=== PATIENT | male | born 1990 | race Caucasian/White ===

== ENCOUNTER 2018-05-07 12:15 | Emergency (ER) | payer OTHER ==
[~2018-05-07] VITALS: Ht 175.3 cm; Wt 59.5 kg
[2018-05-07 13:00] LABS: HEMATOCRIT 42.4 % (38.0-50.0); MCH 29.6 PG (29.0-34.0); MCV 89.6 FL (86-99); PLATELET COUNT 246 K/uL (156-360); RBC DIS.WIDTH-CV 12.7 % (11.8-14.6); RBC DIS.WIDTH-SD 42.2 % (39-53); RED BLOOD COUNT 4.73 M/uL (4.00-5.50); WHITE BLOOD COUNT 5.2 K/uL (4.1-10.2)
[2018-05-07 13:04] LABS: ALBUMIN 4.6 g/dL (3.2-4.8); CHLORIDE 102 mEq/L (99-109)
[2018-05-07 13:05] LABS: POTASSIUM 3.6 mEq/L (3.7-5.4); SODIUM 141 mEq/L (136-147)
[2018-05-07 13:07] LABS: GLUCOSE 92 mg/dL (70-99); TOTAL PROTEIN 7.2 g/dL (6.4-8.3)
[2018-05-07 13:09] LABS: TOTAL BILIRUBIN 1.1 mg/dL (0.0-1.0)
[2018-05-07 13:10] LABS: ALKALINE PHOSPHATASE 63 IU/L (3-129); CREATININE 0.8 mg/dL (0.6-1.3)
[2018-05-07 13:12] LABS: AST (GOT) 31 IU/L (2-34); UREA NITROGEN (BUN) 12 mg/dL (9-23)
[2018-05-07 13:13] LABS: ALT (GPT) 53 IU/L (3-49)
[2018-05-07 13:14] LABS: TROP-I INTERPRETATION NEGATIVE; TROPONIN-I < 0.01 ng/mL (0.0-0.30)
[2018-05-07 13:20] LABS: GFR ESTIMATE (CALCULATED) > 59 mL/min/ (58.99-99999)
[2018-05-07 14:02] LABS: LIPASE 34 U/L (1.0-51.0)
[2018-05-07] MEDS ORDERED: MOTRIN600 MG PO (14:10)
[2018-05-07 15:00] VITALS: BP 105/71
== END 2018-05-07 15:02 | disposition home or self-care (01) ==
LOC: EME 12:15
PROVIDERS: Nurse Practitioner Family
DX: R07.9 Chest pain, unspecified (principal); F43.9 Reaction to severe stress, unspecified; F41.9 Anxiety disorder, unspecified; Z87.891 Personal history of nicotine dependence
CPT/HCPCS: 71046; 80053; 83690; 84484; 85027; 93005; 99281; 99284